=== PATIENT | male | born 1980 | race Caucasian/White ===

== ENCOUNTER 2016-09-13 01:47 | Emergency (ER) | payer SELFPAY ==
[2016-09-13 02:08] VITALS: BP 132/72
--- NOTE | 2016-09-13 02:22 | EDM.PDOC ---
[id number] 4d TOOTH ACHE Time Seen by Provider: 09/13/16 02:05 Source of Information: Reports: Patient History Limitations: Reports: No limitations - History of Present Illness INITIAL COMMENTS - FREE TEXT/NARRATIVE: 35-year-old male with chronic dental pain returning from deep dental caries presents with 24 hours of pain in the right mandibular molars. No fevers or chills, no significant swelling. Onset: other (Yesterday) Quality: Reports: Ache Severity: moderate Right Lower Tooth/Teeth Pain Score (Numeric/FACES): 8 - Related Data Allergies Allergy/AdvReac Type Severity Reaction Status Date / Time No Known Allergies Allergy Verified 09/13/16 01:57 Home Meds: Home Meds NK [No Known Home Meds] 09/13/16 [History] Past Medical History - Past Health History Medical/Surgical History: Denies Medical/Surgical History HEENT History: Reports: Other (see below) Other HEENT History: dental caries Respiratory History: Reports: Asthma Gastrointestinal History: Reports: GERD, Irritable bowel syndrome, Other (see below) Other Gastrointestinal History: early crohns Psychiatric History: Reports: ADD, Anxiety, Depression - Infectious Disease History Infectious Disease History: Reports: Chicken pox, Hepatitis C - Past Surgical History GI Surgical History: Reports: Colonoscopy Social & Family History - Tobacco Use Smoking Status *Q: Current Every Day Smoker Years of Tobacco use: 18 Packs/Tins Daily: 0.5 Used Tobacco, but Quit: No Second Hand Smoke Exposure: No - Caffeine Use Caffeine Use: Reports: Soda - Alcohol Use Days Per Week of Alcohol Use: 0 - Recreational Drug Use Recreational Drug Use: Yes Drug Use in Last 12 Months: No Recreational Drug Type: Reports: Marijuana/Hashish Recreational Drug Last Use: 20 yrs - Living Situation & Occupation Living situation: Reports: single, alone (\[id number] residing at [facility], currently at [facility], originally from [place], plans to move to [facility], and is to) Occupation: other (Currently incarcerated) ED ROS GENERAL - Review of Systems Review Of Systems: See Below Constitutional: Denies: fever, chills Respiratory: Denies: Shortness of Breath GI/Abdominal: Denies: Nausea, Vomiting Skin: Reports: no symptoms Neurological: Denies: Headache Psychiatric: Reports: No symptoms ED EXAM, GENERAL - Physical Exam Exam: See Below Exam Limited By: No limitations General Appearance: alert, no apparent distress Throat/Mouth: Other (Advanced dental decay throughout the molars upper and lower bilaterally. A small amount of swelling around the mandibular molars on the right side where his pain is focused) Course - Vital Signs Last Recorded V/S: Last Vital Signs Temp 97.5 F 09/13/16 02:08 Pulse 98 09/13/16 02:08 Resp 16 09/13/16 02:08 BP 132/72 09/13/16 02:08 Pulse Ox 95 09/13/16 02:08 - Re-Assessments/Exams Free Text/Narrative Re-Assessment/Exam: 09/13/16 02:[address] the patient on 300 mg of clindamycin 3 times a day for the next 5 days and gave him 6 hydrocodone for extra pain control until the antibiotics starts working. He really needs to get established with a dentist. Departure - Departure Time of Disposition: 02:36 Disposition: Home, Self-Care 01 Condition: good Clinical Impression: Pain due to dental caries Instructions: Dental Caries Referrals: PCP,None [Primary Care Provider] - Forms: ED Department Discharge Care Plan Goals: Take antibiotic the next 5 days has directed. Ibuprofen or naproxen for pain and add stronger pain medication over the next 24 hours if needed. Establish care with a dentist as soon as possible.
== END 2016-09-13 02:36 | disposition home or self-care (01) ==
LOC: JP.ED 01:47
DX: K02.9 Dental caries, unspecified (principal); F17.210 Nicotine dependence, cigarettes, uncomplicated
CPT/HCPCS: 99283

== ENCOUNTER 2016-10-11 23:42 | Emergency (ER) | payer SELFPAY ==
[2016-10-12 00:07] VITALS: BP 119/78
--- NOTE | 2016-10-12 01:01 | EDM.PDOC ---
ED HPI Trauma - General Chief Complaint: Upper Extremity Injury/Pain Stated Complaint: BITE BY SOMETHING ON RIGHT ARM Time Seen by Provider: 10/12/16 00:52 Source: Reports: Patient History Limitations: Reports: No limitations - History of Present Illness INITIAL COMMENTS - FREE TEXT/NARRATIVE: 36-year-old gentleman presents emergency department day complaint of redness and swelling on his right arm it occurred over his elbow it has been increasingly getting worse for the last 2 days denies any fevers Allergies/ADRs: Allergies No Known Allergies Allergy (Verified 09/13/16 01:57) Home Medications: Ambulatory Orders NK [No Known Home Meds] 09/13/16 [Confirmed 09/13/16] Past Medical History HEENT History: Reports: Other (see below) Other HEENT History: dental caries Respiratory History: Reports: Asthma Gastrointestinal History: Reports: GERD, Irritable bowel syndrome, Other (see below) Other Gastrointestinal History: early crohns Psychiatric History: Reports: ADD, Anxiety, Depression - Infectious Disease History Infectious Disease History: Reports: Chicken pox - Past Surgical History GI Surgical History: Reports: Colonoscopy Male Surgical History: Reports: Other (see below) Other Male Surgeries/Procedures: undescended testicle surgery as Social & Family History - Tobacco Use Smoking Status *Q: Current Every Day Smoker Years of Tobacco use: 21 Packs/Tins Daily: 0.5 Used Tobacco, but Quit: No Second Hand Smoke Exposure: No - Caffeine Use Caffeine Use: Reports: Energy drinks, Soda - Alcohol Use Days Per Week of Alcohol Use: 1 Number of Drinks Per Day: 1 Total Drinks Per Week: 1 - Recreational Drug Use Recreational Drug Use: No Drug Use in Last 12 Months: No Recreational Drug Type: Reports: Marijuana/Hashish Recreational Drug Last Use: 20 yrs - Living Situation & Occupation Living situation: Reports: single, alone (\[id number] residing at [facility], currently at [facility], originally from [place], plans to move to [facility], and is to) Occupation: other (Currently incarcerated) Review of Systems - Review of Systems Review Of Systems: See Below Constitutional: Denies: fever (Abdomen is) Respiratory: Reports: No Symptoms Cardiovascular: Reports: no symptoms Skin: Reports: rash, erythema, other (Swelling) Trauma Exam - Physical Exam Exam: See Below Text/Narrative:: Examination of the integument system on the right arm the area has been marked with a pen it is predominantly on the elbow and medial aspect of the upper forearm it is red it is warm to the touch it is mildly tender to the touch radial pulses 2+ Exam Limited By: No limitations General Appearance: Reports: alert, WD/WN, no apparent distress Course - Vital Signs Last Recorded V/S: Last Vital Signs Temp 97.6 F 10/12/16 00:20 Pulse 112 H 10/12/16 00:20 Resp 16 10/12/16 00:20 BP 119/78 10/12/16 00:20 Pulse Ox 98 10/12/16 00:20 Departure - Departure Time of Disposition: 00:59 Disposition: Home, Self-Care 01 Condition: good Clinical Impression: Cellulitis of right arm, And cellulitis right arm Forms: ED Department Discharge Additional Instructions: Take full course of antibiotics, Please followup with your primary care provider in 3-5 days if not better, please call return to the emergency department with worsening of symptoms. - Assessment/Plan Plan: Assessment Acuity = acute Site and laterality = cellulitis right arm Etiology = unclear etiology Manifestations = pain, swelling Location of injury = home Lab values = none Plan Elected to treat empirically Keflex ten-day course followup with primary care 3- 5 days for reevaluation Patient was in agreement with the plan all questions were answered, they were instructed to return to the emergency department or call for worsening symptoms. This note was dictated using [employer] voice recognition software please call with any questions.
== END 2016-10-12 01:10 | disposition home or self-care (01) ==
LOC: JP.ED 23:42
DX: L03.113 Cellulitis of right upper limb (principal); F41.9 Anxiety disorder, unspecified; F32.9 Major depressive disorder, single episode, unspecified; J45.909 Unspecified asthma, uncomplicated; K21.9 Gastro-esophageal reflux disease without esophagitis; F17.210 Nicotine dependence, cigarettes, uncomplicated
CPT/HCPCS: 99283